=== PATIENT | male | born 1980 | race Caucasian/White ===

== ENCOUNTER 2016-12-30 14:01 | Emergency (ER) | payer SELFPAY ==
[~2016-12-30] VITALS: Ht 180.3 cm; Wt 104.5 kg
[~2016-12-30 14:01] MED LIST: ANTIVERT25 MG PO; ATIVAN0.5 MG PO; ESCITALOPRAM OX20 MG PO; NOHOMEMEDS; NORCO 5/3251 TABLET PO; PEPCID20 MG PO; PERCOCET 5/31 TABLET PO
[2016-12-30] MEDS ORDERED: LIDODERM 5% P1 PATCH TD (17:03)
[2016-12-30] MEDS ORDERED: PREDNISONE20 MG PO (17:03)
[2016-12-30] MEDS ORDERED: FLEXERIL10 MG PO (17:03)
[2016-12-30] MEDS ORDERED: MOTRIN800 MG PO (17:03)
[2016-12-30 17:21] VITALS: BP 100/85
== END 2016-12-30 17:30 | disposition home or self-care (01) ==
LOC: EME 14:01
DX: M54.42 Lumbago with sciatica, left side (principal); Z88.0 Allergy status to penicillin; Z91.040 Latex allergy status; Z72.0 Tobacco use
CPT/HCPCS: 72100; 99281; 99284; J1885; J7512